=== PATIENT | female | born 1965 | race Two or more races ===

== ENCOUNTER 2024-10-16 11:48 | Emergency (ER) | payer MEDICAID, SELFPAY ==
[2024-10-16 11:49] VITALS: BMI 27.8
--- NOTE | 2024-10-16 11:51 | EKG_ITS ---
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
[2024-10-16 11:54] VITALS: BP 159/83; PULSE 96; RESP 18; TEMP 37.1; O2SAT 98
--- NOTE | 2024-10-16 12:44 | XR_ITS ---
Exam: Chest PA, lateral 2 views Technique: Chest upright PA lateral 2 views Date and time of exam: 10/16/2024, 12:53 PM COMPARISON: 03/10/2023 INDICATION: Chest pain Findings: Normal heart size. No mediastinal adenopathy. No acute fracture No pulmonary edema or pneumonia. Impression: No active disease.
--- NOTE | 2024-10-16 12:46 | PD.EDRME ---
Rapid Medical Screening Exam RME Arrival date/time: 10/16/24 11:48 Chief Complaint: Chest Pain Time Seen by Provider: 10/16/24 12:39 Vital signs: Vital Signs Temperature 98.7 F 10/16/24 11:54 Pulse Rate 96 10/16/24 11:54 Respiratory Rate 18 10/16/24 11:54 Blood Pressure 159/83 H 10/16/24 11:54 Pulse Oximetry (%) 98 10/16/24 11:54 Oxygen Delivery Method Room Air 10/16/24 11:54 RME Narrative: 58-year-old diabetic female here for 2 days of chest pain. States started with chest pain that radiated to her back and now down her left arm. Did not take any aspirin. On metformin 500 twice a day also history of cholesterol. No history of GA or stroke. Non-smoker does not use drugs or alcohol.
[2024-10-16 13:48] LABS: Base Excess, Venous 1 (-3-3); Lactate (Lactic Acid) 1.3 mMol/L (0.4-2.0); O2 Saturation, Venous 73 % (96-97); PCO2, Venous 35 mmHg (36-56); PO2, Venous 35 mmHg (15-58); pH, Venous 7.45 (7.33-7.66)
[2024-10-16 13:59] LABS: Basophils # (Auto) 0.0 Thou/mm3 (0.0-0.2); Basophils % (Auto) 0 % (0-2.5); Eosinophils # (Auto) 0.0 Thou/mm3 (0.0-0.5); Eosinophils % (Auto) 0 % (0-10); Hematocrit 43.3 % (36.0-46.0); Hemoglobin 14.4 g/dL (12.0-16.0); Immature Granulocytes Auto 0.02 Thou/mm3 (0.00-0.00); Lymphocytes # (Auto) 1.4 Thou/mm3 (1.0-4.8); Lymphocytes % (Auto) 21 % (10-50); Mean Corpuscular HGB Conc 33.3 g/dl (31.0-37.0); Mean Corpuscular Hemoglobin 29.1 pg (25.0-35.0); Mean Corpuscular Volume 88 fL (80-100); Monocytes # (Auto) 0.4 Thou/mm3 (0.0-0.8); Monocytes % (Auto) 6 % (0-12); Neutrophils # (Auto) 4.8 Thou/mm3 (1.8-7.7); Neutrophils % (Auto) 72 % (37-80); Nucleated Red Blood Cell # 0.00 Thou/mm3 (0.00-0.00); Nucleated Red Blood Cell % 0 /100 WBC (0); Platelet Count 221 Thou/mm3 (140-440); RDW Standard Deviation 40.2 fL (36.4-46.3); Red Blood Count 4.94 Miln/mm3 (4.00-5.20); White Blood Count 6.6 Thou/mm3 (3.6-11.0)
[2024-10-16 14:25] LABS: B-Type Natriuretic Peptide < 20 pg/mL (0-100)
[2024-10-16 14:35] LABS: Alanine Aminotransferase 57 U/L (10-49); Albumin, Serum 4.9 gm/dL (3.4-4.8); Albumin/Globulin Ratio 1.7 (1.2-2.2); Alkaline Phosphatase 87 U/L (46-116); Anion Gap 9 (7-16); Aspartate Amino Transferase 33 U/L (0-34); BUN/Creatinine Ratio 10 Ratio (12-20); Bilirubin,Total 0.5 mg/dL (0.3-1.2); Blood Urea Nitrogen 6 mg/dL (9-23); Calcium 10.3 mg/dL (8.3-10.6); Calcium (Corrected) 10.3 mg/dL (8.5-10.1); Carbon Dioxide 28.4 mMol/L (20.0-31.0); Chloride 105 mMol/L (98-107); Creatinine (Component) 0.6 mg/dL (0.6-1.3); Estimated Creatinine Clearance 87.1 mL/min (>60); Globulin 2.9 gm/dL (2.3-3.5); Glucose 143 mg/dL (74-106); Osmolality,Calculated 282 (275-295); Potassium 4.2 mMol/L (3.4-5.1); Sodium 142 mMol/L (136-145); Total Protein 7.8 gm/dL (5.7-8.2); Troponin I < 0.002 ng/mL (0.0-0.045); eGFR > 60 See Note
[2024-10-16 15:14] LABS: Lipase 31 U/L (12-53)
[2024-10-16 15:27] LABS: Beta Hydroxybutyrate 0.2 mmol/L (<0.6)
[2024-10-16 16:32] VITALS: BP 123/73; PULSE 77; RESP 16; TEMP 36.7; O2SAT 98
--- NOTE | 2024-10-16 17:26 | PD.EDCHEST ---
ED Chest Pain RME/HPI General Chief Complaint: Chest Pain Stated Complaint: CHEST PAIN, SOB Time Seen by Provider: 10/16/24 12:39 Arrival date/time: 10/16/24 11:48 RME / HPI RME / HPI narrative: 58-year-old diabetic female here for 2 days of posterior upper chest pain. States started with chest pain that radiated to her front and now down her left arm. Severity of symptoms moderate. Did not take any aspirin. On metformin 500 twice a day also history of cholesterol. No history of SD or stroke. Non-smoker does not use drugs or alcohol. Patient denies any cough denies any trauma or fall denies any other complaints. Related Data Previous Rx's ?Medication ?Instructions ?Recorded acetaminophen 325 mg tablet (Aphen) 650 mg (2 x 325 mg) PO QID PRN 10/16/24 pain #60 tabs methocarbamol 500 mg tablet 500 mg PO Q8H #30 tabs 10/16/24 Allergies Allergy/AdvReac Type Severity Reaction Status Date / Time naproxen Allergy Severe ITICHING Unverified 04/17/10 15:10 Review of Systems Review of Systems Narrative Review of Systems: Review of system reviewed and within normal limits except mentioned in HPI ED Exam Narrative Physical exam: VITAL SIGNS: Reviewed. GENERAL APPEARANCE: Alert and interactive, follows commands, no acute distress, HEAD AND FACE: Non-traumatic. ENT: PERRL, pink conjunctivitis, eyelid no trauma, Mucous membrane moist. NECK: Supple, nontender, no nuchal rigidity. CHEST: Posterior upper chest tenderness, no crepitus, no paradoxical movement, no retractions. LUNGS: Clear, well ventilated, symmetric, no rales, no wheezing, no ronchi, no stridor, good breath sounds bilaterally. HEART: Regular rate, regular rhythm, no murmur, no gallops. ABDOMEN: Soft, positive bowel sounds, nondistended, no guarding, nontender, no rebound, no masses, RECTAL: Deferred. GENITAL: Deferred. NEUROLOGICAL: Gross motor function intact sensory function intact, Appropriate for age. MUSCULOSKELETAL: low back nontender, full range of motion. EXTREMITIES: Nontender, full range of motion. SKIN: Color pink, dry, no rash, no lacerations, no abrasions, no contusions. LYMPHATICS: Deferred. Course Quality Measures none Orders Category Date Time Status EKG (ED ONLY) *Do not use* NOW Care 10/16/24 11:51 Completed EKG (ED Only) Stat Exams 10/16/24 11:51 Draft XR chest 2V Stat Exams 10/16/24 12:44 Completed BNP [B-Type Natriuretic Peptide] Stat Lab 10/16/24 13:28 Completed CBC Stat Lab 10/16/24 13:28 Completed CMP [Comprehensive Metabolic Panel] Stat Lab 10/16/24 13:28 Completed Ketone [Beta Hydroxybutyrate] Stat Lab 10/16/24 13:28 Completed Lactic Acid [Lactate (Lactic Acid)] Stat Lab 10/16/24 13:28 Completed Lipase Stat Lab 10/16/24 13:28 Completed Troponin I Stat Lab 10/16/24 13:28 Completed VBG [Venous Blood Gas] Stat Lab 10/16/24 13:28 Completed Aspirin Med 10/16/24 12:44 Discontinued 325 mg PO X1 ONE Morphine Inj Med 10/16/24 17:22 Discontinued 4 mg IM X1 ONE Ondansetron Odt [Zofran Odt] Med 10/16/24 17:22 Discontinued 4 mg PO X1 ONE methocarbamoL [Robaxin] Med 10/16/24 17:22 Discontinued 500 mg PO X1 ONE Vital Signs Vital signs: Vital Signs Temperature 98.7 F 10/16/24 11:54 Pulse Rate 96 10/16/24 11:54 Respiratory Rate 18 10/16/24 11:54 Blood Pressure 159/83 H 10/16/24 11:54 Pulse Oximetry (%) 98 10/16/24 11:54 Oxygen Delivery Method Room Air 10/16/24 11:54 Chest Pain MDM Narrative MDM Narrative:: 58-year-old diabetic female here for 2 days of posterior upper chest pain. States started with chest pain that radiated to her front and now down her left arm. Severity of symptoms moderate. Did not take any aspirin. On metformin 500 twice a day also history of cholesterol. No history of SD or stroke. Non-smoker does not use drugs or alcohol. Patient denies any cough denies any trauma or fall denies any other complaints. I personally reviewed and interpreted the x-ray of this patient. There is no acute abnormalities found, no infiltrates no pneumothorax no hemothorax normal chest x-ray. Review of other structures was without significant abnormal findings also. I additionally reviewed the radiologist report and agree with the interpretation. Patient's workup today all came back normal including troponin which is normal also repeat troponin is not needed, patient has been having symptoms for at least 2 days now. EKG showed normal sinus rhythm, ventricular rate of 91 bpm, no ST segment elevation depression noted. Results discussed with the patient. Patient was given morphine and Zofran and aspirin with significant progress symptoms Patient appears nontoxic and hemodynamically stable .Decision to discharge the patient. The patient/family was given an opportunity to ask questions and understood their discharge instructions. Discharge instructions specifically included follow up provider and time frame, current and/or new medications and possible side effects, indications for sooner follow up or return to the emergency department, and the expected course of current diagnosis. Patient reports feeling better as well and giving evidence of significant clinical improvement, I believe patient is now a candidate for discharge. Patient data External records reviewed:: None Clinical information provided by:: patient Social determinants that could affect healthcare access:: none Patient has the following chronic illnesses:: Diabetes mellitus How is presenting disease/condition affected by chronic disease/condition?: exacerbated by Evaluation data The following diagnostics were reviewed and interpreted by me:: lab results, radiology exam(s) and EKG tracing(s) Lab and/or radiology exams considered but not ordered:: None Interpretation Summary: See results MDM Medications / Prescriptions Medications or Prescriptions considered but not ordered:: None Medication administrations:: Medication Administration History Discontinued Medications Aspirin (Aspirin 325 Mg Tablet) 325 mg PO X1 ONE Stop: 10/16/24 12:45 Last Admin: 10/16/24 12:49 Dose: 325 mg Documented By: MARTINEZ Methocarbamol (Methocarbamol 500 Mg Tablet) 500 mg PO X1 ONE Stop: 10/16/24 17:23 Morphine Sulfate (Morphine Sulf Inj 10 Mg/Ml Vial) 4 mg IM X1 ONE Stop: 10/16/24 17:23 Ondansetron HCl (Ondansetron Odt 4 Mg Tabrap) 4 mg PO X1 ONE; Protocol Stop: 10/16/24 17:23 Zofran morphine Robaxin and aspirin Consultations Consultation(s) initiated? (list below): No Diagnosis Chest Pain Differential Diagnosis: pneumothorax, atypical chest pain and chest pain Most likely diagnosis given after review of the tests above:: Chest pain, muscular Admission Indicated Admission indicated?: not indicated Admission Request Was there a request for admission?: No Disposition Plan Disposition Plan: Discharge Discharge Attestation Discharge Attestation: The patient and all family members were given an opportunity to ask questions and understood the discharge instructions. Discharge instructions specifically effects, indications for sooner follow up or return to the emergency department, and the expected course of current diagnosis. Patient condition: Stable Discharge Plan Plan Patient Disposition: HOME (Self Care) Discharge Disposition comment: Stable Prescriptions/Referrals Prescriptions/Med Rec: New acetaminophen [Aphen] 325 mg tablet 650 mg PO QID PRN (Reason: pain) Qty: 60 0RF methocarbamol 500 mg tablet 500 mg PO Q8H Qty: 30 0RF Referrals: Nicol Dasilva NP [Primary Care Provider] - In 1 week Problem List Clinical Impression: Chest pain, muscular Patient/Caregiver Discharge Instructions Discharge Activity: activity as tolerated Education Materials: ED Chest Pain, Noncardiac Additional Instructions: Thank you for the opportunity for serving you today. You are stable for discharged . You are advised to: Follow-up with your PCP in 1 to 2 days Return to ED for worsening of symptoms Increase oral fluids Take medication as prescribed Print Language: Greek Stand Alone Forms: [employer]edi Award Info., Patient Portal Info Letter PA/LOIS Supervising Physician LIVIER/LOIS Supervising Physician: MD Chano
[2024-10-16] MEDS: ONDANSETRON ODT 4 MG TABRAP PO (17:41)
[2024-10-16] MEDS: MORPHINE SULF INJ 10 MG/ML VIAL 4 MG IM (17:42)
== END 2024-10-16 17:46 | disposition home or self-care (01) ==
PROVIDERS: Physician Assistant; Emergency Provider Family Medicine; PCP Nurse Practitioner Family
DX: R07.89 Other chest pain (principal); I44.0 Atrioventricular block, first degree
CPT/HCPCS: 36415; 71046; 80053; 82010; 82803; 83605; 83690; 83880; 84484; 85025; 93005; 96372; 99283; J2270; Q0162; A9270

== ENCOUNTER → 2024-11-11 | Outpatient (CLI) | payer MEDICAID, SELFPAY ==
[2024-11-11 10:26] LABS: Basophils # (Auto) 0.0 Thou/mm3 (0.0-0.2); Basophils % (Auto) 0 % (0-2.5); Eosinophils # (Auto) 0.1 Thou/mm3 (0.0-0.5); Eosinophils % (Auto) 1 % (0-10); Hematocrit 42.4 % (36.0-46.0); Hemoglobin 13.7 g/dL (12.0-16.0); Immature Granulocytes Auto 0.03 Thou/mm3 (0.00-0.00); Lymphocytes # (Auto) 1.6 Thou/mm3 (1.0-4.8); Lymphocytes % (Auto) 28 % (10-50); Mean Corpuscular HGB Conc 32.3 g/dl (31.0-37.0); Mean Corpuscular Hemoglobin 28.9 pg (25.0-35.0); Mean Corpuscular Volume 90 fL (80-100); Monocytes # (Auto) 0.5 Thou/mm3 (0.0-0.8); Monocytes % (Auto) 9 % (0-12); Neutrophils # (Auto) 3.5 Thou/mm3 (1.8-7.7); Neutrophils % (Auto) 61 % (37-80); Nucleated Red Blood Cell # 0.00 Thou/mm3 (0.00-0.00); Nucleated Red Blood Cell % 0 /100 WBC (0); Platelet Count 238 Thou/mm3 (140-440); RDW Standard Deviation 42.8 fL (36.4-46.3); Red Blood Count 4.74 Miln/mm3 (4.00-5.20); White Blood Count 5.7 Thou/mm3 (3.6-11.0)
[2024-11-11 10:40] LABS: Glucose Estimated Average 169 mg/dL (80-131); Hemoglobin A1C 7.5 % Hgb (4.8-6.0)
[2024-11-11 10:52] LABS: Vitamin D 25 Hydroxy Total 43.6 ng/mL (7.3-40.2)
[2024-11-11 10:57] LABS: Alanine Aminotransferase 41 U/L (10-49); Albumin, Serum 4.9 gm/dL (3.4-4.8); Albumin/Globulin Ratio 2.3 (1.2-2.2); Alkaline Phosphatase 83 U/L (46-116); Anion Gap 11 (7-16); Aspartate Amino Transferase 33 U/L (0-34); BUN/Creatinine Ratio 17 Ratio (12-20); Bilirubin,Total 0.4 mg/dL (0.3-1.2); Blood Urea Nitrogen 12 mg/dL (9-23); Calcium 9.7 mg/dL (8.3-10.6); Calcium (Corrected) 9.7 mg/dL (8.5-10.1); Carbon Dioxide 27.8 mMol/L (20.0-31.0); Cardiac Risk Estimate 2.1 RATIO (3.7-5.6); Chloride 105 mMol/L (98-107); Cholesterol 105 mg/dL (132-200); Creatinine (Component) 0.7 mg/dL (0.6-1.3); Free T4 (Free Thyroxine) 1.27 ng/dL (0.89-1.76); Globulin 2.1 gm/dL (2.3-3.5); Glucose 149 mg/dL (74-106); HDL Cholesterol 49 mg/dL (40-60); LDL Cholesterol,Calculated 35 mg/dL (0-130); Osmolality,Calculated 289 (275-295); Potassium 4.4 mMol/L (3.4-5.1); Sodium 144 mMol/L (136-145); Thyroid Stimulating Hormone 2.25 uIU/mL (0.55-4.78); Total Protein 7.0 gm/dL (5.7-8.2); Triglycerides 107 mg/dL (30-150); eGFR > 60 See Note
[2024-11-11 12:55] LABS: Urea Breath Test Negative (Negative)
[2024-11-11 14:11] LABS: Parathyroid Hormone Intact 32.1 pg/ml (18.5-88.0)
[2024-11-18 14:06] LABS: Direct LDL* 49 mg/dL (<100)
== END | disposition home or self-care (01) ==
LOC: COPL 09:08
PROVIDERS: PCP Family Medicine; Referring Provider Nurse Practitioner Family; Visit Provider Nurse Practitioner Family
DX: E83.52 Hypercalcemia (principal); E11.65 Type 2 diabetes mellitus with hyperglycemia; Z13.220 Encounter for screening for lipoid disorders; K21.9 Gastro-esophageal reflux disease without esophagitis; R53.81 Other malaise; R53.83 Other fatigue
CPT/HCPCS: 36415; 80053; 80061; 82306; 83013; 83014; 83036; 83721; 83970; 84439; 84443; 85025

== ENCOUNTER → 2024-12-22 | Outpatient (CLI) | payer MEDICAID, SELFPAY ==
--- NOTE | 2024-12-22 08:22 | XR_ITS ---
Examination: Abdomen sonogram, complete Date and time of exam: December 22, 2024, 0829 hours INDICATIONS: Upper abdominal epigastric pain and burning sensation in 3 months worse the last week. Technique: Multiple real-time grayscale transabdominal sonographic images of the abdomen have been obtained. Findings: No diagnostic visualization gallbladder Common bile duct 0.3 cm Pancreatic head 2.8 cm Aorta not enlarged. Liver 14.9 cm fatty infiltration no focal liver lesions Normal hepatopetal portal venous flow Patent IVC Right kidney 10.5 cm renal cortex 1.9 cm Left kidney 11.4 cm renal cortex 1.8 cm Mild renal scar formation Spleen 11.3 cm 19 x 10 mm low-density lesion IMPRESSION: Normal common bile duct Fatty infiltration throughout the liver Consider CT scan abdomen pelvis post intravenous contrast follow-up to assess 19 x 9 x 10 mm splenic lesion
== END | disposition home or self-care (01) ==
LOC: CDIM 08:11
PROVIDERS: PCP Family Medicine; Referring Provider Nurse Practitioner Family; Visit Provider Nurse Practitioner Family
DX: K76.0 Fatty (change of) liver, not elsewhere classified (principal); D73.89 Other diseases of spleen
CPT/HCPCS: 76700

== ENCOUNTER → 2025-01-07 | Outpatient (CLI) | payer MEDICAID, SELFPAY ==
--- NOTE | 2025-01-07 08:53 | XR_ITS ---
Examination: CT abdomen with intravenous contrast CT pelvis with intravenous contrast 2-D coronal reconstructions 2-D sagittal reconstructions Date and time of exam: January 07, 2025, 0946 hours INDICATIONS: Upper abdominal pain 3 months, 19 x 9 x 10 mm splenic lesion on abdomen sonogram December 22, 2024. CTDI: vol (mGy) 7.58 DLP: (mGycm) 413 Technique: Multiple axial sections of the abdomen and pelvis have been obtained. 64 slice high-resolution scanner used. 3 mm axial sections have been obtained, post intravenous injection 60 cc [id number] 2-D sagittal, coronal reconstructions obtained. Low dose protocols were performed. One or more of the following dose reduction techniques were used; automated exposure control, adjustment of the mA and/or KV according to patient size, use of iterative reconstruction technique. Findings: No focal liver lesions Solid anterior 17 mm splenic lesion axial image 66 Absent gallbladder No pancreatic or adrenal mass Moderate renal scar formation Aorta normal size No bowel obstruction Normal appendix No pelvic mass Bladder intact Moderate osteopenia IMPRESSION: Solid 17 mm anterior splenic lesion, differential would include primary splenic tumor Recommend 3 to 6-month follow-up CT abdomen pelvis postcontrast
== END | disposition home or self-care (01) ==
PROVIDERS: PCP Nurse Practitioner Family; Referring Provider Nurse Practitioner Family; Visit Provider Nurse Practitioner Family
DX: D73.89 Other diseases of spleen (principal)
CPT/HCPCS: 74177; A4649; Q9967